=== PATIENT | male | born 1990 | race Caucasian/White ===

== ENCOUNTER 2020-04-02 11:28 | Emergency (ER) | payer SELFPAY ==
[2020-04-02 11:31] VITALS: BP 132/85; PULSE 84; RESP 18; TEMP 37.2; O2SAT 99; BMI 22.7
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
[2020-04-02 14:52] VITALS: BP 127/79; PULSE 74; RESP 16; O2SAT 99
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
[2020-04-02 16:36] VITALS: BP 136/82; PULSE 73; RESP 16; O2SAT 99
== END 2020-04-02 16:35 | disposition home or self-care (01) ==
PROVIDERS: Emergency Provider Nurse Practitioner Family
DX: S00.03XA Contusion of scalp, initial encounter (principal); S16.1XXA Strain of muscle, fascia and tendon at neck level, initial encounter; M54.9 Dorsalgia, unspecified; V89.2XXA Person injured in unspecified motor-vehicle accident, traffic, initial encounter
CPT/HCPCS: 12345; 72040; 72070; 99281; 99283

== ENCOUNTER 2022-01-16 19:30 | Emergency (ER) | payer MEDICAID, SELFPAY ==
[2022-01-16 19:37] VITALS: BP 98/62; PULSE 60; RESP 17; O2SAT 98; BMI 22.6
--- NOTE | 2022-01-16 19:46 | XRR_ITS ---
PROCEDURE INFORMATION: Exam: XR Right Wrist Exam date and time: 01/16/2022 7:54 PM Age: 31 years old Clinical indication: Injury or trauma; Other: Laceration; Wrist; Right; Additional info: Wrist pain TECHNIQUE: Imaging protocol: Radiologic exam of the Right wrist. Views: 3 or more views. COMPARISON: CR ( EX, ) 01/16/2022 7:49 PM FINDINGS: Bones/joints: No fracture or dislocation. Soft tissues: No radiopaque foreign body seen. XR/XR wrist RT min 3V* [id number] IMPRESSION: No acute
--- NOTE | 2022-01-16 19:46 | XRR_ITS ---
PROCEDURE INFORMATION: Exam: XR Right Hand Exam date and time: 01/16/2022 7:49 PM Age: 31 years old Clinical indication: Injury or trauma; Other: Laceration; Hand; Right; Additional info: Lac TECHNIQUE: Imaging protocol: Radiologic exam of the Right hand. Views: 3 or more views. COMPARISON: No relevant prior studies available. FINDINGS: Bones/joints: No fracture or dislocation. Soft tissues: No radiopaque foreign body seen. XR/XR hand RT min 3V* [id number] IMPRESSION: No acute osseous injury.
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
[2022-01-16] MEDS: tetanus-dipt-pertussis 0.5 mL SDV IM (20:50)
[2022-01-16 20:51] VITALS: RESP 16
[2022-01-16] MEDS: morphine 4 mg/mL SDV 1 mL IM (20:51)
[2022-01-16 20:52] LABS: Basophils % 0.4 %; Eosinophils # 0.2 10^3/uL (0.0-0.8); Eosinophils % 2.2 %; Hematocrit 38.1 % (42.0-52.0); Hemoglobin 13.3 g/dL (11.7-16.6); Lymphocytes # 2.3 10^3/uL (0.8-4.8); Lymphocytes % 25.6 %; Mean Corpuscular HGB Conc 34.9 g/dL (30.0-36.0); Mean Corpuscular Hemoglobin 30.6 pg (28.0-34.0); Mean Corpuscular Volume 87.8 fl (80-94); Mean Platelet Volume 9.5 fL (7.4-10.4); Monocytes # 0.7 10^3/uL (0.2-0.9); Monocytes % 7.3 %; Neutrophils # 5.86 10^3/uL (1.8-7.7); Neutrophils % 64.1 %; Nucleated Red Blood Cells % 0 %; Platelet Count 218 10^3/cmm (130-400); Red Blood Count 4.34 10^6/uL (4.1-5.3); White Blood Count 9.2 10^3/uL (4.0-10.0)
[2022-01-16 21:08] LABS: Anion Gap 15.4 (5-19); Blood Urea Nitrogen 14 mg/dL (6-20); Calcium 8.2 mg/dL (8.5-10.5); Carbon Dioxide 22 mmol/L (22-29); Chloride 101 mmol/L (98-107); Glomerular Filtration Rate 132.4 mL/min (90-130); Glucose 135 mg/dL (65-115); Osmolality Calculated 283 mOsm/kg (285-295); Potassium 3.4 mmol/L (3.5-5.1); Sodium 135 mmol/L (136-145)
[2022-01-16] MEDS: lidocaine 1% INJ 20 mL INJECTION (21:39)
== END 2022-01-16 22:17 | disposition home or self-care (01) ==
PROVIDERS: Emergency Provider Emergency Medicine
DX: S61.511A Laceration without foreign body of right wrist, initial encounter (principal); S61.411A Laceration without foreign body of right hand, initial encounter; W25.XXXA Contact with sharp glass, initial encounter; Z23 Encounter for immunization
CPT/HCPCS: 12002; 73110; 73130; 80048; 85025; 90471; 90715; 96372; 99284; J2270